=== PATIENT | male | born 1990 | race Two or more races ===

== ENCOUNTER 2017-10-07 23:52 | Emergency (ER) | payer OTHER ==
[~2017-10-07] VITALS: Ht 177.8 cm; Wt 77.1 kg
--- NOTE | 2017-10-08 00:17 | NUR ---
BBSELF C/C BILATERAL ABD PAIN RADIATING TO BILATERAL FLANKS X1HR MANAGEMENT LIAISON. +N/V,-D.-DYSURIA. SKIN WNL. PT IS AAOX4. RESP EVEN AND UNLABORED. PT NOTED TO BE IN MILD DISTRESS RELATED TO HIS ABD AND FLANK PAIN. PT NOTED WALKING AROUND IN CIRCLES. PT PLACED ON MONITOR AND POX. PT SAFETY AND COMFORT MEASURES IN PLACE.
[2017-10-08] MEDS ORDERED: ONDANSETRON HCL/PF 4 MG/2 ML VIAL ONE (00:28)
[2017-10-08] MEDS ORDERED: KETOROLAC TROMETHAMINE INJ 30 MG/ML VIAL ONE (00:28)
[2017-10-08] MEDS ORDERED: MORPHINE SULFATE INJ 4 MG/ML DISP.SYRIN ONE ×2 (00:28→01:23)
[2017-10-08] MEDS ORDERED: ONDANSETRON HCL/PF - ER 4 MG/2 ML VIAL IV ONE (00:30)
[2017-10-08] MEDS ORDERED: KETOROLAC TROMETHAMINE INJ 30 MG/ML VIAL IV ONE (00:30)
[2017-10-08] MEDS ORDERED: MORPHINE SULFATE INJ 2 MG/ML DISP.SYRIN IV ONE ×2 (00:30→01:30)
--- NOTE | 2017-10-08 00:47 | NUR ---
PT TO CT
--- NOTE | 2017-10-08 01:15 | NUR ---
PT UNABLE TO GIVE URINE SPECIMENT AT THIS TIME. MD AWARE. WILL TRY AGAIN AT A LATER TIME
[2017-10-08] MEDS ORDERED: HYDROCODONE/APAP 5/325MG 1 EACH TABLET PO ONE (02:00)
[2017-10-08] MEDS ORDERED: HYDROCODONE/APAP 5/325MG 1 EACH TABLET ONE (02:04)
[2017-10-08 03:00] LABS: APPEARANCE,URINE CLEAR (CLEAR); COLOR,URINE YELLOW (YELLOW)
[2017-10-08 03:01] LABS: BILIRUBIN,URINE 1+ (NEGATIVE); BLOOD, URINE 1+ Ery/uL (NEGATIVE); PROTEIN,URINE 2+ mg/dl (NEGATIVE); UGLUCOSE NEGATIVE (NEGATIVE)
[2017-10-08 03:02] LABS: KETONES,URINE 2+ (NEGATIVE); LEUKOCYTE ESTERASE ,URINE NEGATIVE (NEGATIVE); NITRITE, URINE NEGATIVE (NEGATIVE)
[2017-10-08 03:05] LABS: BACTERIA,URINE Rare /HPF (None Seen); RBC,URINE 0-2 /HPF (0-2); SQUAMOUS EPITHELIAL CELL,UR Few /HPF (None Seen); WBC,URINE 0-2 /HPF (0-3)
--- NOTE | 2017-10-08 03:12 | NUR ---
Patient discharged to home in stable condition. Written and verbal after care instructions given. Patient verbalizes understanding of instruction.IV removed. Catheter intact and site benign. Pressure and 4x4 applied to site. No bleeding noted. PT AMBULATED WITH STEADY GAIT NOTED. NO S/S OF DISTRESS UPON DISCHARGE
[2017-10-08 03:13] VITALS: BP 121/70
== END 2017-10-08 03:14 | disposition home or self-care (01) ==
LOC: ER 23:54
DX: N13.2 Hydronephrosis with renal and ureteral calculous obstruction (principal); Z88.1 Allergy status to other antibiotic agents; Z60.2 Problems related to living alone
CPT/HCPCS: 81000-TC; A4606; A6402; J1885; J2270; J2405; Z7610